=== PATIENT | female | born 1950 | race Caucasian/White ===

== ENCOUNTER 2016-10-21 18:40 | Emergency (ER) ==
[2016-10-21 18:59] VITALS: BP 117/72; TEMP 97.9; BMI 27.3
[2016-10-21] MEDS ORDERED: ZOFRAN TAB PO STA (18:59)
[2016-10-21 19:27] LABS: BASOPHILS # (AUTO) 0.1 K/uL (0-0.2); BASOPHILS % (AUTO) 0.8 % (0.0-3.0); EOSINOPHILS # (AUTO) 0.1 K/ul (0.0-0.7); HEMATOCRIT 41.9 % (37.0-47.0); HEMOGLOBIN 14.4 g/dl (12.0-16.0); LYMPHOCYTES # (AUTO) 2.1 K/uL (0.60-3.4); LYMPHOCYTES % (AUTO) 33.9 (10.0-50.0); MEAN CORPUSCULAR HEMOGLOBIN 31.5 pg (27.0-31.0); MEAN CORPUSCULAR HGB CONC 34.4 (31.8-35.4); MEAN CORPUSCULAR VOLUME 91.7 fl (81.0-99.0); MONOCYTES # (AUTO) 0.6 K/uL (0.4-2.0); MONOCYTES % (AUTO) 10.2 (0-10); NEUTROPHILS # (AUTO) 3.2 K/ul (2.0-6.9); NEUTROPHILS % (AUTO) 52.1; PLATELET COUNT 283 10^3/uL (140-440); RED BLOOD COUNT 4.57 10^6/ul (4.20-5.40); WHITE BLOOD COUNT 6.07 K/ul (4.6-10.2)
--- NOTE | 2016-10-21 19:42 | CT ---
EXAM: CT scan of the head without contrast HISTORY: Headache TECHNIQUE: Imaging of the head was performed without intravenous contrast. 5 mm thin axial images and coronal and sagittal images were provided for interpretation. FINDINGS: The francis-white interface appears normal. No acute hemorrhages are seen. There is no mas s effect. There are no extraaxial collections. The basal cisterns are patent. The paranasal sinuse s and mastoid air cells are clear. The calvarium and extracranial soft tissues are normal. IMPRESSION: No acute intracranial abnormalities are seen.
[2016-10-21 19:54] LABS: ALANINE AMINOTRANSFERASE 27 U/L (12-78); ALBUMIN 3.8 g/dL (3.4-5.0); ALBUMIN/GLOBULIN RATIO 1.15; ALKALINE PHOSPHATASE 60 U/L (53-141); ANION GAP 13.5; ASPARTATE AMINO TRANSFERASE 23 U/L (15-37); BILIRUBIN,TOTAL 0.34 mg/dL (0.00-1.20); BLOOD UREA NITROGEN 17 mg/dL (7-18); BUN/CREATININE RATIO 17.89; CALCIUM 9.7 mg/dL (8.2-10.2); CARBON DIOXIDE 29 mmol/L (23-31); CHLORIDE 102 mmol/L (98-107); CREATINE KINASE 59 U/L; CREATININE 0.95 mg/dL (0.60-1.30); GLUCOSE 97 mg/dL (82-115); POTASSIUM 3.5 mmol/L (3.5-5.10); SODIUM 141 mmol/L (136-145); TOTAL PROTEIN 7.1 g/dL (5.8-8.1)
[2016-10-21 20:03] LABS: ERYTHROCYTE SEDIMENTATION RATE 21 mm/hr (0-20); ESR INTERNAL QC INTERNAL QC VALID
--- NOTE | 2016-10-21 20:05 | ED.PDOC ---
General ED Provider: Dr. 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 Denies: Dizziness, Seizure, Vomiting, Sinus pressure, Fever, Neck pain, Neck stiffness, Decreased LOC, Visual changes Temporal Arteritis Risk Factors: Reports: Female, Normal Head CT Within Last 12 Months: No Fundoscopic Exam: Present: Normal Findings Papilledema Present: No Temporal Artery Tenderness: Present: None Sinus Tenderness: Present: None TMJ Tenderness: Present: None Glascow Coma Scale (see protocol): 15 Meningeal Signs Positive: No Pain on Passive Flexion-Positive Kernig's: No ROM Limited In: No Limitiations Focal Weakness: Present: None Focal Sensory Loss: Present: None Gait: Normal Nystagmus Present: No Gag Reflex Present: Yes [id number]: Normal Findings Romberg Test Positive: No Babinski Sign: Negative Right, Negative Left Heel to Toe Normal: Yes Differential Diagnoses: Migraine, Tension Headache Review of Systems - Review Of Systems Constitutional: Reports: No symptoms Eyes: Reports: No symptoms Ears, Nose, Mouth, Throat: Reports: No symptoms Respiratory: Reports: No symptoms Cardiac: Reports: No symptoms GI: Reports: Nausea : Reports: No symptoms Musculoskeletal: Reports: No symptoms Skin: Reports: No symptoms Neurological: Reports: No symptoms Endocrine: Reports: No symptoms Hematologic/Lymphatic: Reports: No symptoms All Other Systems: Reviewed and Negative Past Medical History - Past Medical History Endocrine: Reports: Unknown Cardiovascular: Reports: Unknown Respiratory: Reports: Unknown Hematological: Reports: Unknown Gastrointestinal: Reports: Unknown Genitourinary: Reports: Unknown Neuro/Psych: Reports: CVA Musculoskeletal: Reports: Unknown Cancer: Reports: Unknown Last Menstrual Period: NA - Surgical History General Surgical History: Reports: Unknown - Family History Family History: Reports: Unknown - Social History Smoking Status: Former smoker Hx Substance Use: No Alcohol Screening: None Lives: With family - Immunizations Tetanus Shot up to Date: No (UNKNOWN) Physical Exam - Physical Exam Appearance: Well-appearing, No pain distress, Well-nourished Eyes: THIERNO, EOMI, Conjunctiva clear ENT: Ears normal, Nose normal, Oropharynx normal Neck: Supple Respiratory: Airway patent, Breath sounds clear, Breath sounds equal, Respirations nonlabored Cardiovascular: RRR, Pulses normal, No rub, No murmur GI/: Soft, Nontender, No masses, Bowel sounds normal, No Organomegaly Musculoskeletal: Normal strength, ROM intact, No edema, No calf tenderness Skin: Warm, Dry, Normal color Neurological: Sensation intact, Motor intact, Reflexes intact, Cranial nerves intact, Alert, Oriented Psychiatric: Affect appropriate, Mood appropriate Interpretation - Radiology Interpretation Radiology Interpretation By: Radiologist Radiology Results: Negative Exam Interpreted: CT Scan - EKG Interpretation Time of EKG #1: 20:06 Rate: Lucio Rhythm: Sinus Ectopy: None [place]: NL ST Segment: Normal Interpretation: nsr Re-Evaluation - Re-Evaluation Time of Re-Evaluation: 20:07 Status: Improved Vital Signs Stable: Yes Pain Level: no pain Appearance: NAD Lungs: Clear Skin: Warm and Dry Neuro: Alert and Oriented X3 CV: RRR Critical Care Note - Critical Care Note Total Time (mins): 0 Course - Course Hematology/Chemistry: 10/21/16 19:25 10/21/16 19:25 Orders, Labs, Meds: Lab Review 10/21/16 19:25 WBC 6.07 RBC 4.57 Hgb 14.4 Hct 41.9 MCV 91.7 MCH 31.5 H MCHC 34.4 RDW Coeff of Zina 14.4 Plt Count 283 Immature Gran % (Auto) 1.0 Neut % (Auto) 52.1 Lymph % (Auto) 33.9 [place] % (Auto) 10.2 H Eos % (Auto) 2.0 Baso % (Auto) 0.8 Immature Gran # (Auto) 0.1 Neut # 3.2 Lymph # 2.1 [place]isher # 0.6 Eos # 0.1 Baso # 0.1 ESR 21 H Sodium 141 Potassium 3.5 Chloride 102 Carbon Dioxide 29 Anion Gap 13.5 BUN 17 Creatinine 0.95 Estimated GFR (MDRD) 59.00 BUN/Creatinine Ratio 17.89 Glucose 97 Calcium 9.7 Total Bilirubin 0.34 AST 23 ALT 27 Alkaline Phosphatase 60 Total Creatine Kinase 59 Troponin I < 0.0100 Total Protein 7.1 Albumin 3.8 Globulin 3.3 Albumin/Globulin Ratio 1.15 Orders Category Date Time Status EKG-(ED ONLY) Stat CARDIO 10/21/16 18:58 Completed 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 APPLIED] .ONCE EMERGENCY 10/21/16 18:58 Active CBC W/ AUTO DIFF Stat LAB 10/21/16 19:25 Completed COMPREHENSIVE METABOLIC PANEL Stat LAB 10/21/16 19:25 Completed CREATINE KINASE Stat LAB 10/21/16 19:25 Completed ESR Stat LAB 10/21/16 19:25 Completed TROPONIN I Stat LAB 10/21/16 19:25 Completed Ondansetron HCl [Zofran Tab] MEDS 10/21/16 18:59 Discontinued 4 mg PO ONCE STA CT HEAD W/O CONTRAST Stat RADS 10/21/16 18:58 Completed Medications Discontinued Medications Generic Name Dose Route Start Last Admin Trade Name Freq PRN Reason Stop Dose Admin Ondansetron HCl 4 mg 10/21/16 18:59 10/21/16 19:13 Zofran Tab PO 10/21/16 19:00 4 mg ONCE STA Administration Vital Signs: Temp Pulse Resp BP Pulse Ox 10/21/16 18:43 97.9 F 62 16 117/72 93 L ms nix has tenderness over both tmj joints--both tms and external canals are clear ?tmj Departure - Departure Time of Disposition: 20:14 Disposition: HOME SELF-CARE Discharge Problem: Headache, Temporomandibular joint disorder Instructions: Acute Headache (ED) Condition: Good Pt referred to PMD for follow-up: Yes Additional Instructions: f/u with pcp--consider f/u with neurology or pcp Allergies/Adverse Reactions: Allergies Penicillins Adverse Reaction (Intermediate, Verified 07/19/13 15:02) Rash amoxicillin Adverse Reaction (Unverified 11/17/15 13:12) cefazolin [From Ancef] Adverse Reaction (Unverified 11/17/15 13:12) cephalexin [From Keflex] Adverse Reaction (Unverified 11/17/15 13:12) clarithromycin [From Biaxin] Adverse Reaction (Unverified 11/17/15 13:12) donepezil [From Aricept] Adverse Reaction (Verified 10/21/16 19:08) Sulfa (Sulfonamide Antibiotics) Adverse Reaction (Verified 07/19/13 15:03) eggs Allergy (Severe, Uncoded 03/05/14 15:46) sick, nausea magnesium Allergy (Severe, Uncoded 03/05/14 15:46) severe Home Medications: Ambulatory Orders Buspirone HCl [Buspar] 10 mg PO DAILY 07/19/13 Hydrochlorothiazide 25 mg PO DAILY 07/19/13 Metoprolol Tartrate [Lopressor] 50 mg PO BID 07/19/13 Aspirin 81 mg PO DAILY 03/05/14 Calcium Carbonate [Calcium] 600 mg PO DAILY 03/05/14 Levothyroxine Sodium 112 mcg PO DAILY 03/05/14 Pravastatin Sodium 10 mg PO DAILY 03/05/14 Ascorbate Calcium [Vitamin C] 500 mg PO DAILY 11/17/15 Diphenhydramine HCl [Benadryl] 25 mg PO Q6H PRN 11/17/15 Famotidine [Pepcid AC] 10 mg PO DAILY 11/17/15 Memantine HCl [Namenda] 10 mg PO BID 11/17/15 Vitamin B Complex 1 tab PO DAILY 11/17/15 Sertraline HCl [Zoloft] 100 mg PO DAILY 03/26/16 Disposition Discussed With: Patient, Family
== END 2016-10-21 20:40 | disposition home or self-care (01) ==
LOC: ED 18:40
DX: R51 Headache (principal); M26.609 Unspecified temporomandibular joint disorder, unspecified side; R11.0 Nausea; Z79.899 Other long term (current) drug therapy; Z86.73 Personal history of transient ischemic attack (TIA), and cerebral infarction without residual deficits
CPT/HCPCS: 36415; 80053; 82550; 84484; 85025; 85651; 93005; 93010; 99283

== ENCOUNTER 2017-08-06 10:50 | Outpatient (CLI) ==
--- NOTE | 2017-08-06 11:33 | DEXA ---
EXAM: Bone density HISTORY: Postmenopausal female on multiple medications with previous fractures and prior hysterectom y COMPARISON: None TECHNIQUE: Digital images of the thoracolumbar spine and hips were provided and calculation of bone density was obtained. FINDINGS: Digital images demonstrate no compression deformities of the thoracolumbar spine. DEXA scan of the lumbar spine is of good quality. The total BMD equals 1.178 grams per square centimeter. T-score is 0.0 Z-score of 1.0 DEXA of the hips was performed and of good quality. Total bone marrow density of 0.972 grams per square centimeter. T score is - 0.3 Z-score is 0.6 IMPRESSION: Bone density of the hip and lumbar spine demonstrate normal bone density by WHO criteria . FRAX calculation tool demonstrates 10-year major osteoporotic fracture risk of 14% and hip fracture r isk of 1.2% T score greater than -1 is normal T score -1 to -2.5 is osteopenia T score less than - 2.5 is osteoporosis
== END 2017-08-06 10:51 | disposition home or self-care (01) ==
LOC: RAD 10:50
PROVIDERS: ATTEND Physician Assistant Medical
DX: Z78.0 Asymptomatic menopausal state (principal)